=== PATIENT | female | born 1935 | race Caucasian/White ===

== ENCOUNTER 2019-01-16 00:10 | Outpatient (CLI) | payer OTHER ==
[2019-01-16 00:30] VITALS: BMI 19.8
== END 2019-01-16 00:19 | disposition critical access hospital (66) ==
LOC: AMBL 00:10
PROVIDERS: ATTEND Internal Medicine Geriatric Medicine
DX: R11.2 Nausea with vomiting, unspecified (principal); R19.7 Diarrhea, unspecified; R10.9 Unspecified abdominal pain; R53.1 Weakness; R00.0 Tachycardia, unspecified

== ENCOUNTER 2019-01-16 00:18 | Emergency (ER) | payer OTHER ==
[2019-01-16 00:30] VITALS: BP 145/58; TEMP 98; BMI 19.8
[2019-01-16] MEDS ORDERED: SODIUM CHLORIDE 1,000 ML IV STA (00:35)
[2019-01-16] MEDS ORDERED: PHENERGAN IV PRN (00:44)
[2019-01-16] MEDS ORDERED: SODIUM CHLORIDE IV PRN (00:44)
[2019-01-16] MEDS ORDERED: MORPHINE 2 MG/ML SYRINGE IVP STA (00:44)
[2019-01-16] MEDS ORDERED: DILAUDID 1 MG/ML SYRINGE IVP STA (01:03)
[2019-01-16] MEDS ORDERED: PHENERGAN 25 MG/ML VIAL ONE (01:13)
--- NOTE | 2019-01-16 02:05 | ED.PDOC ---
General ED Provider: Dr. JOSÉ MIGUEL TO-ER Chief Complaint: Abdominal Pain Stated Complaint: shes vomiting and hurting Time Seen by Physician: 00:30 Mode of Arrival: Ambulance Information Source: Patient, Family, EMT Exam Limitations: No limitations Primary Care Provider: ANUPAM GIFFORD Nursing and Triage Documentation Reviewed and Agree: Yes Does patient meet sepsis criteria?: No System Inflammatory Response Syndrome: Not Applicable Sepsis Protocol: For patient's 13 years and over: Temp is 96.8 and below OR 101 and greater Pulse >90 BPM Resp >20/minute Acutely Altered Mental Status Are patient's symptoms suggestive of a new infection, such as: -Pneumonia -Skin, Soft Tissue -Endocarditis -UTI -Bone, Joint Infection -Implantable Device -Acute Abdominal Infection -Wound Infection -Meningitis -Blood Stream Catheter Infection -Unknown GI Complaint Exam - Vomiting/Diarrhea Complaint/Exam Onset/Duration: 24 hrs Symptoms Are: Still present Initial Severity: Mild Current Severity: Moderate Character of Vomiting: Reports: Non-bilious Aggravating: Reports: None Alleviating: Reports: None Associated Signs and Symptoms: Reports: Abdominal pain, Cramping Recent Positive Test: No Use of Oral Contraceptives: No Use of Depoprovera: No Compliant With Contraceptive Use: No Non-GI Risk Factors: Reports: None Surgical Obstruction Risk Factors: Reports: Colicky abdominal pain, Prior abdominal surgery Related Surgical History: Reports: Cholecystectomy, Appendectomy Abdominal Findings: Present: None Kussmaul Respirations Present: No Differential Diagnoses: Bowel Obstruction, Dehydration, Viral Gastroenteritis, Bacterial Gastroenteritis Review of Systems - Review Of Systems Constitutional: Reports: No symptoms Eyes: Reports: No symptoms Ears, Nose, Mouth, Throat: Reports: No symptoms Respiratory: Reports: No symptoms Cardiac: Reports: No symptoms GI: Reports: Abdominal pain, Diarrhea, Nausea, Vomiting : Reports: No symptoms Musculoskeletal: Reports: No symptoms Skin: Reports: No symptoms Neurological: Reports: No symptoms Endocrine: Reports: No symptoms Hematologic/Lymphatic: Reports: No symptoms All Other Systems: Reviewed and Negative Past Medical History - Past Medical History Previously Healthy: Yes Endocrine: Reports: None Cardiovascular: Reports: None Respiratory: Reports: None Hematological: Reports: None Gastrointestinal: Reports: GERD Genitourinary: Reports: None Neuro/Psych: Reports: None Musculoskeletal: Reports: Arthritis Cancer: Reports: None Last Menstrual Period: hyst - Surgical History General Surgical History: Reports: Hysterectomy, Appendectomy, Cholecystectomy, Tonsillectomy - Family History Family History: Reports: Unknown - Social History Smoking Status: Never smoker Hx Substance Use: No Alcohol Screening: None - Immunizations Tetanus Shot up to Date: Yes Physical Exam - Physical Exam Appearance: Well-appearing, No pain distress, Well-nourished Pain Distress: Mild Eyes: JAM, EOMI, Conjunctiva clear ENT: Ears normal, Nose normal, Oropharynx normal Respiratory: Airway patent, Breath sounds clear, Breath sounds equal, Respirations nonlabored Cardiovascular: RRR, Pulses normal, No rub, No murmur GI/: Soft, Nontender, No masses, Bowel sounds normal, No Organomegaly Musculoskeletal: Normal strength, ROM intact, No edema, No calf tenderness Skin: Warm, Dry, Normal color Neurological: Sensation intact Psychiatric: Affect appropriate, Mood appropriate Interpretation - Radiology Interpretation Radiology Interpretation By: Radiologist Radiology Results: Positive Exam Interpreted: CT Scan - EKG Interpretation Time of EKG #1: 02:05 Rate: Normal Rhythm: Sinus Ectopy: None [place]: NL ST Segment: Normal Interpretation: nsr Critical Care Note - Critical Care Note Total Time (mins): 0 Course - Course Hematology/Chemistry: 01/16/19 00:40 01/16/19 00:40 Orders, Labs, Meds: Lab Review 01/16/19 01/16/19 01/16/19 00:40 00:40 00:40 WBC 7.79 RBC 3.96 L Hgb 12.1 Hct 36.7 L MCV 92.7 MCH 30.6 MCHC 33.0 RDW Coeff of John 13.4 Plt Count 169 Immature Gran % (Auto) 0.5 Neut % (Auto) 78.2 Lymph % (Auto) 13.0 Crenshaw % (Auto) 8.1 Eos % (Auto) 0.1 Baso % (Auto) 0.1 Immature Gran # (Auto) 0.0 Neut # (Auto) 6.1 Lymph # (Auto) 1.0 Crenshaw # (Auto) 0.6 Eos # (Auto) 0.0 Baso # (Auto) 0.0 ESR 9 Sodium 138.1 Potassium 3.71 Chloride 103.0 Carbon Dioxide 27.4 Anion Gap 11.41 BUN 21.2 H Creatinine 0.59 L Estimated GFR (MDRD) 98.00 BUN/Creatinine Ratio 35.93 Glucose 139.6 H Calcium 9.25 Total Bilirubin 0.56 AST 40.3 H ALT 19.6 Alkaline Phosphatase 55.2 Total Creatine Kinase 58.5 Troponin I < 0.012 Total Protein 6.26 L Albumin 3.97 Globulin 2.29 Albumin/Globulin Ratio 1.73 Amylase 92.7 Lipase 83.6 Influ A Molecular Assay Influ B Molecular Assay 01/16/19 00:40 WBC RBC Hgb Hct MCV MCH MCHC RDW Coeff of John Plt Count Immature Gran % (Auto) Neut % (Auto) Lymph % (Auto) Crenshaw % (Auto) Eos % (Auto) Baso % (Auto) Immature Gran # (Auto) Neut # (Auto) Lymph # (Auto) Crenshaw # (Auto) Eos # (Auto) Baso # (Auto) ESR Sodium Potassium Chloride Carbon Dioxide Anion Gap BUN Creatinine Estimated GFR (MDRD) BUN/Creatinine Ratio Glucose Calcium Total Bilirubin AST ALT Alkaline Phosphatase Total Creatine Kinase Troponin I Total Protein Albumin Globulin Albumin/Globulin Ratio Amylase Lipase Influ A Molecular Assay Negative by naat Influ B Molecular Assay Negative by naat Orders Category Date Time Status EKG-(ED ONLY) Stat CARDIO 01/16/19 00:34 Completed ED ICER HAND APPLIED .ONCE EMERGENCY 01/16/19 00:34 Active ED IV/MEDIPORT/POWERPORT .ONCE EMERGENCY 01/16/19 00:34 Active AMYLASE Stat LAB 01/16/19 00:40 Completed CBC W/ AUTO DIFF Stat LAB 01/16/19 00:40 Completed COMPREHENSIVE METABOLIC PANEL Stat LAB 01/16/19 00:40 Completed CREATINE KINASE Stat LAB 01/16/19 00:40 Completed ESR Stat LAB 01/16/19 00:40 Completed FLU A/B MOLECULAR Stat LAB 01/16/19 00:40 Completed LIPASE Stat LAB 01/16/19 00:40 Completed MOLECULAR GROUP A STREP Stat LAB 01/16/19 00:40 Completed TROPONIN I Stat LAB 01/16/19 00:40 Completed URINALYSIS C & S IF INDICATED Stat LAB 01/16/19 01:55 Ordered 0.9 % Sodium Chloride [Saline Flush] MEDS 01/16/19 00:34 Ordered 1 syr IVF PRN PRN Hydromorphone HCl [Dilaudid 1 mg/ml Syringe] MEDS 01/16/19 01:03 Discontinued 1 mg IVP ONCE STA Morphine Sulfate [Morphine 2 mg/ml Syringe] MEDS 01/16/19 00:44 Discontinued 2 mg IVP ONCE STA Promethazine HCl [Phenergan 25 mg/ml Vial] MEDS 01/16/19 01:13 Discontinued 25 mg .ROUTE .STK-MED ONE Promethazine HCl [Phenergan 25 mg/ml Vial] 6.25 mg MEDS 01/16/19 00:44 Ordered 0.9 % Sodium Chloride [Sodium Chloride] 50 ml IV ONCE Sodium Chloride 0.9% [Sodium Chloride] 1,000 ml MEDS 01/16/19 00:[address] ABDOMEN/PELVIS WO CONTRAST Stat RADS 01/16/19 00:35 Taken Medications Generic Name Dose Route Start Last Admin Trade Name Freq PRN Reason Stop Dose Admin Promethazine HCl 6.25 mg/ 50.25 mls @ 75 mls/hr 01/16/19 00:44 01/16/19 01:16 Sodium Chloride IV 75 mls/hr ONCE PRN Administration Nausea / Vomiting Sodium Chloride 1 syr 01/16/19 00:34 01/16/19 00:51 Saline Flush IVF 1 syr PRN PRN Administration To flush IV Discontinued Medications Generic Name Dose Route Start Last Admin Trade Name Freq PRN Reason Stop Dose Admin Hydromorphone HCl 1 mg 01/16/19 01:03 01/16/19 01:07 Dilaudid 1 Mg/Ml Syringe IVP 01/16/19 01:04 0.5 mg ONCE STA Administration Sodium Chloride 1,000 mls @ 1,000 mls/hr 01/16/19 00:35 01/16/19 00:50 Sodium Chloride IV 01/16/19 01:34 1,000 mls/hr BOLUS STA Administration Morphine Sulfate 2 mg 01/16/19 00:44 01/16/19 00:51 Morphine 2 Mg/Ml Syringe IVP 01/16/19 00:45 2 mg ONCE STA Administration Vital Signs: Temp Pulse Resp BP Pulse Ox 01/16/19 00:19 98 F 89 20 145/58 H 98 Departure - Departure Time of Disposition: 02:05 Disposition: TSF SHORT-TRM HOSP Discharge Problem: Small bowel obstruction Instructions: Bowel Obstruction (ED) Condition: Fair Pt referred to PMD for follow-up: No IPMP verified?: No Allergies/Adverse Reactions: Allergies meperidine [From Demerol] Adverse Reaction (Verified 04/14/19 00:30) Home Medications: Ambulatory Orders Multivitamin 1 cap PO DAILY 01/16/19 Propranolol HCl [Inderal] 0 mg PO DAILY 01/16/19 Transfer Form Completed: Yes Disposition Discussed With: Patient, Family
--- NOTE | 2019-01-16 02:06 | CT ---
EXAM: CT scan abdomen pelvis without contrast HISTORY: Vomiting COMPARISON: CT scan abdomen bowel as 01/17/2016 FINDINGS: Contiguous axial images were obtained through the abdomen pelvis without contrast utilizin g 3-mm collimation. Sagittal and coronal reconstructions were imaged and reviewed.. The visualized l jose bases are clear. There is a hiatal hernia. There is a stable simple cyst within the dome of mele er. The gallbladder is fluid filled without cholelithiasis. The pancreas spleen and adrenal glands have normal unenhanced CT appearance. Renovascular calcifications noted bilaterally. Atheroscleroti c changes are seen involving the aorta without aneurysm formation. There has been prior hysterectomy . There is diverticulosis without diverticulitis.. There are dilated air and fluid loops of small wojciech wel extending from the left upper quadrant into the lower pelvis where there is a gradual transition. . Bowel loops measure upwards of 2.8 cm.. There is no free fluid. The bladder is small volumed skinner iting evaluation. Bone windows reveals no evidence of lytic or blastic lesions. IMPRESSION: Prominent small bowel with gradual transition in the lower pelvis which may be related to early or i ncomplete small bowel obstruction versus ileus or less likely extensive gastroenteritis.. Diverticulosis without diverticulitis. Prior hysterectomy. Results were conveyed via telephone to the emergency room physician 1:57 a.m. 01/16 2019
--- NOTE | 2019-01-16 07:20 | DI ---
EXAM: Abdomen one view HISTORY: Check tube placement COMPARISON: None TECHNIQUE: Single view abdomen was performed. FINDINGS: Nasogastric tube terminates in the distal stomach region. Multiple dilated loops of small bowel. IMPRESSION: 1. Nasogastric tube terminating in the distal stomach region. 2. Multiple dilated loops small bowel, suggesting small bowel obstruction.
== END 2019-01-16 02:40 | disposition short-term general hospital (02) ==
LOC: ED 00:18
DX: R10.9 Unspecified abdominal pain (principal); R11.2 Nausea with vomiting, unspecified; R19.7 Diarrhea, unspecified; K56.609 Unspecified intestinal obstruction, unspecified as to partial versus complete obstruction
CPT/HCPCS: 36415; 80053; 81001; 82150; 82550; 83690; 84484; 85025; 85651; 87502; 87651; 93005; 93010; 96361; 96365; 96375; 99285

== ENCOUNTER 2019-01-16 02:48 | Outpatient (CLI) | payer OTHER ==
[2019-01-16 00:30] VITALS: BMI 19.8
== END 2019-01-16 03:11 | disposition short-term general hospital (02) ==
LOC: AMBL 02:48
PROVIDERS: ATTEND Family Medicine
DX: R11.2 Nausea with vomiting, unspecified (principal); R19.7 Diarrhea, unspecified